=== PATIENT | male | born 1990 | race Caucasian/White ===

== ENCOUNTER 2025-04-22 14:26 | Emergency (ER) | payer BC, SELFPAY ==
--- OUTSIDE RECORDS SUMMARY | 2025-04-22 14:30 | XMS_ITS | Encounter Summary ---
Author Organization 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 [place] [address] Phone: tel: fax: [address] [place] [address] Phone: tel: fax: Referral ID Status Reason Start Date Expiration Date V isits Requested Visits Authorized [id number] Closed Specialty Services Required 03/25/2025 04/24/2026 1 1 Question Answer Please select the performing region: [facility] [[id number]] Please select the performing department: [facility] [[id number]] # of visits: 1 Comments Small fat umbilical hernia noted causing pain Encounter Details Date Type Department Care Team (Late st Contact Info) Description 03/25/2025 Results Follow-Up [facility] [address] [address] Tamika Cunningham NP [address] [place] [address] CT Chest Abdomen Pelvis W Contrast, Lipid panel, Comprehensive metabolic panel, Additional followed-up results: 4 Social History Tobacco Use Types Packs/Day Years Used Date Smoking Tobacco: Former Cigarettes Q uit: 2009 Smokeless Tobacco: Former Chew Quit: 07/30/2020 Comments:does chew 1x/month Alcohol Use Standard Drinks/Week Comments Yes 0 (1 standard drink = 0.6 oz pur e alcohol) occasionally AUDIT-C Answer Date Recorded Q1: How often do you have a drink containing alc ohol? Monthly or less 11/03/2021 Average Number of Drinks Not on file 022 Frequency of Binge Drinking Not on file 01/2022 PHQ-2 Answer Date Recorded PHQ-2 Total Score (If total score is 3 or more points, staff should administer the PHQ-9) 0 03/25/2024 Personal Safety Answer Date Recorded Have you ever been in or are you currently in a harmful physical or emotional relationship or is someone making you feel afraid or unsafe? Denies 08/29/2023 Sex and Gender Information Value Date Recorded Sex Assigned at Not on file Legal Sex Male 8:51 PM [employer] Gender Identity Not on file Sexual Orientation Not on file documented as of this encounter Ordered Prescriptions Prescription Sig Dispense Quantity Refills Last Filled Start Date End Date testosterone 50 mg/5 gram (1 %)Indications:Hypog onadism in male Place 2 each on the skin daily 300 g 2 03/25/2025 06/23/2025 testosterone 50 mg/5 gram (1 %)Indications:Hypog onadism in male Place 2 each on the skin daily 300 g 2 03/25/2025 03/25/2025 documented in this encounter Miscellaneous Notes * Telephone Encounter - Dipti Zamarripa MA - 03/25/2025 9:13 AM CDT Pt aware * Telephone Encounter - Dipti Zamarripa MA - 03/25/2025 9:13 AM CDT ----- Message from Tamika Cunningham NP sent at 03/25/2025 7:36 AM CDT ----- Please let Mr. Laguna know his CT of the chest, abdomen, and pelvis showed a small umbilical herniaand diverticulosis. 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 Also I had sent him a message in January about the testosterone cream he uses is not something I can order because it comes from a compound pharmacy, and I cannot send to that location. I can either send in a another testosterone cream or we can do injections. Please let me know his thoughts. I will also place a referral to general surgery for the hernia. ----- Message ----- From: Interface, Radiology Results In Sent: 03/25/2025 7:29 AM CDT To: Tamika Cunningham NP * Addendum Note - Tamika Cunningham NP - 03/25/2025 9:08 AM CDTAddended by: TAMIKA CUNNINGHAM on: 03/25/2025 09:08 AM Modules accepted: Orders * Telephone Encounter - Dipti Zamarripa MA - 03/25/2025 9:02 AM CDT Pt agreeable to referral. Pt also states that he is okay with you prescribing a different cream as long as it works the same way. Pt uses [facility] in [place] * Telephone Encounter - Dipti Zamarripa MA - 03/25/2025 9:02 AM CDT ----- Message from Tamika Cunningham NP sent at 03/25/2025 7:36 AM CDT ----- Please let Mr. Laguna know his CT of the chest, abdomen, and pelvis showed a small umbilical herniaand diverticulosis. 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 Also I had sent him a message in January about the testosterone cream he uses is not something I can order because it comes from a compound pharmacy, and I cannot send to that location. I can either send in a another testosterone cream or we can do injections. Please let me know his thoughts. I will also place a referral to general surgery for the hernia. ----- Message ----- From: Interface, Radiology Results In Sent: 03/25/2025 7:29 AM CDT To: Tamika Cunningham NP documented in this encounter Plan of Treatment Upcoming Encounters Date Type Department Care Team (Latest Contact Info) Description 05/27/2025 8:00 AM CDT Hospital Encounter [facility] [address] [place] [address] Kofi Maxwell MD [address] [place] [address] DR ARORA [address] [place] [id number] 05/27/2025 8:00 AM CDT - 05/27/2025 10:20 AM CDT Surgery [facility] [address] [place] [address] Kofi Maxwell MD [address] [place] [address] DR ARORA [address] [place] [id number] XI REPAIR VENTRAL HERNIA - LAPAROSCPIC ROBOTIC ASSISTED Scheduled Procedures Name Priority Associated Diagnoses Date/Ti me XI REPAIR VENTRAL HERNIA - LAPAROSCPIC ROBOTIC ASSISTED Epigastric hernia Umbilical hernia without obstruction and without gangrene 05/27/2025 8:00 AM CDT Scheduled Referrals Name Type Priority Associated Diagnoses Orde r Schedule Ambulatory referral to General Surgery Outpatient Referral Routine Umbilical hernia without obstruction and without gangrene Expected: 05/25/2025 (Approximate), Expires: 03/25/2026 documented as of this encounter Visit Diagnoses Diagnosis Umbilical hernia without obstruction and without gangrene- Primary Hypogonadism in male Umbilical hernia without obstruction and without gangrene- Primary Epigastric hernia Other ventral hernia without mention of obstruction or gangrene Epigastric hernia Other ventral hernia without mention of obstruction or gangrene Umbilical hernia without obstruction and without gangrene documented in this encounter Discontinued Medications Medication Sig Discontinue Reason Start Date End Da te testosterone 50 mg/5 gram (1 %)Indications:Hypogonadis m in male Place 2 each on the skin daily 03/25/2025 03/25/2025 documented as of this encounter Care Teams [employer] Deliverer And Installer Relationship Specialty Start Date End Date Octavio Stout MD [address] [place] [address] PCP - General 06/17/15 Mikayla Bauer, PT Physical Therapist Physical Therapy 12/18/17 Pati Lin, PT Physical Therapist Physical Therapy 01/03/18 Conrado Deutsch MD Surgeon Cardiothoracic Surgery 09/28/21 Moises Quiros MD Consulting Physician Cardiology 09/28/21 documented as of this encounter
--- OUTSIDE RECORDS SUMMARY | 2025-04-22 14:30 | XMS_ITS | Clinical Summary ---
Author Organization [facility] Address [address] [place] [address] Care Team Providers Care [employer] Name Role Phone Octavio Stout MD Primary Care Provider [phone] Mikayla Bauer PT Unavailable Unavailab Pati Simon PT Unavailable Unavailable Conrado Deutsch MD Unavailable [phone] Moises Quiros MD Unavailable Allergies Active Allergy Reactions Criticality Noted Date Comments Atorvastatin Muscle pain Medium 02/23/2023 Hydromorphone Itching,Anaphylaxis High 09/30/2021 had post surgery and starting itching and throat started get tight Lisinopril Cough Low 08/15/2019 Medications aspirin 81 mg enteric coated tabletIndicatio ns:cardiovascul ar disease Take 1 tablet (81 mg total) by mouth daily 30 tablet 11 03/30/20 21 Active multivit with min-folic acid 200 mcg tablet,chewable Take 1 Gum by mouth daily Active elderberry fruit 350 mg capsule Take 1 capsule by mouth daily Active nitroglycerin (NITROSTAT) 0.[address] 1 tablet (0.4 mg total) under the tongue every 5 (five) minutes as needed for chest pain 25 tablet 11 10/18/19 24 Active testosterone micronized, bulk, 100 % powder 0 12/15/19 24 Active cyclobenzaprine (FLEXERIL) 5 mg tabletIndicatio ns:Acute left-sided thoracic back pain Take 1 tablet (5 mg total) by mouth 3 (three) times a day as needed for muscle spasms for up to 3 days 9 tablet 01/03/20 24 Active Additional Information Patient not taking.Reported on 03/31/2025 clopidogreL (PLAVIX) 75 mg tablet Take 1 tablet (75 mg total) by mouth daily 90 tablet 3 10/30/19 25 026 Active isosorbide mononitrate ER (IMDUR) 30 mg 24 hr tablet TAKE 1 TABLET BY MOUTH ONCE DAILY 30 tablet 12/16/19 25 Active metoprolol XL (TOPROL-XL) 50 mg extended release tablet TAKE 1 TABLET BY MOUTH ONCE DAILY 30 tablet 12/16/19 25 Active ALPRAZolam (XANAX) 0.25 mg tablet Take 1 tablet (0.25 mg total) by mouth 2 (two) times a day as needed for anxiety 60 tablet 5 02/06/20 25 Active gabapentin (NEURONTIN) 800 mg tablet Take 1 tablet (800 mg total) by mouth 2 (two) times a day Take a third dose as needed. 02/10/20 25 Active inclisiran (Leqvio) 284 mg/1.5 mL syringe Inject 1.5 mL (284 mg total) under the skin every 6 (six) months Active testosterone 50 mg/5 gram (1 %)Indications:H ypogonadism in male Place 2 each on the skin daily 300 g 2 03/25/20 25 025 Active Additional Information Patient taking differently:2 each transdermal Daily,Using the cream per pt, Reported on 03/31/[address] (PROTONIX) 40 mg EC tablet Take 1 tablet (40 mg total) by mouth daily 90 tablet 04/21/20 25 025 Active hydrOXYzine (ATARAX) 25 mg tabletIndicatio ns:Anxiety TAKE 1 TABLET(25 MG) BY MOUTH THREE TIMES DAILY 90 tablet 07/28/20 [address] (PROTONIX) 40 mg EC tablet TAKE ONE TABLET BY MOUTH ONCE DAILY 90 tablet 3 01/29/20 24 025 Discontinued testosterone 50 mg/5 gram (1 %)Indications:H ypogonadism in male Place 2 each on the skin daily 300 g 2 03/25/20 25 025 Discontinued Active Problems Problem Noted Date Diagnosed Date Umbilical hernia without obstruction and without gangrene 04/13/2025 Epigastric hernia 03/31/2025 Assessment & Plan (03/31/2025 9:14 AM CDT): We will set the patient up for repair of the epigastric hernia. Given the umbilical discomfort as well we will also evaluate that area at the time of surgery. 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 We have discussed the need for mesh implantation. We have discussed doing this via a minimally invasive approach. All questions answered. He would like to wait closer till [place] time for the holidays to be able to take off. He will call sooner if anything changes before then. Hypogonadism in male 02/12/2025 Assessment & Plan (02/12/2025 9:28 AM CDT): Recent lab work from [facility] was uploaded into media to show recent lab work testosterone was noted to be 24.10 for free and 1,095 for total with the use of testosterone 200/ML cream from [facility]. Testosterone labs ordered today as well. Orders: Testosterone, bioavailable; Future Sleep disturbance 03/25/2024 Assessment & Plan (05/19/2024 12:42 PM CDT): Sleep study did not reveal significant sleep apnea. He is going to see sleep medicine specialist tomorrow. Appreciate their expertise. Assessment & Plan (03/25/2024 8:25 AM CDT): Sleep study ordered. Discussed the importance of treating sleep apnea if revealed on sleep study. He is agreeable and states understanding. Persistent depressive disorder 07/09/2022 Assessment & Plan (08/14/2024 8:21 AM LITIGATION CLAIM REPRESENTATIVE): Chronic, stable. No medications. Denies any symptoms at this time. Denies any active suicidal ideation. Continue to monitor at interval. Assessment & Plan (02/24/2024 8:25 PM CDT): Chronic, persistent symptoms including several of the following: depressed mood for most of the day, for more days than not, as indicated by either subjective account or observation by others for at least 2 years, and at least the presence, while depressed, of 2 or more of the following: poor appetite or overeating, insomnia or hypersomnia, low energy or fatigue, low self-esteem, poor concentration or difficulty making decisions, feelings of hopelessness. It is additionally noted that the patient has never been without the symptoms for more than 2 months at a time. Additionally, it is noted that there has never been a manic episode or a hypomanic episode, and criteria have never been met for cyclothymic disorder. The disturbance is not better explained by a persistent schizoaffective disorder, schizophrenia, delusional disorder, or other specified or unspecified schizophrenia spectrum and other psychotic disorder. The symptoms are not attributable to the physiological effects of a substance (e.g., a drug of abuse, a medication) or another medical condition (e.g., hypothyroidism). The patient does report that the symptoms cause clinically significant distress or impairment in social, occupational, or other important areas of functioning. The patient denies current suicidal ideation. The patient denies current homicidal ideation. The patient does not endorse any symptoms of psychosis, yolanda, or hypomania. I discussed the importance of lifestyle modification with the patient today. The patient will focus on lifestyle modification including: changes to diet, incorporate regularly scheduled exercise, obtain sufficient sleep/maintain proper sleep hygiene, and focus on reducing (or managing) stress levels with healthy techniques. Does not feel he needs any medication at this time. Feels symptoms are manageable without medication. Continue to monitor. Assessment & Plan (02/10/2023 7:38 AM CDT): Chronic, persistent symptoms including several of the following: depressed mood for most of the day, for more days than not, as indicated by either subjective account or observation by others for at least 2 years, and at least the presence, while depressed, of 2 or more of the following: poor appetite or overeating, insomnia or hypersomnia, low energy or fatigue, low self-esteem, poor concentration or difficulty making decisions, feelings of hopelessness. It is additionally noted that the patient has never been without the symptoms for more than 2 months at a time. Additionally, it is noted that there has never been a manic episode or a hypomanic episode, and criteria have never been met for cyclothymic disorder. The disturbance is not better explained by a persistent schizoaffective disorder, schizophrenia, delusional disorder, or other specified or unspecified schizophrenia spectrum and other psychotic disorder. The symptoms are not attributable to the physiological effects of a substance (e.g., a drug of abuse, a medication) or another medical condition (e.g., hypothyroidism). The patient does report that the symptoms cause clinically significant distress or impairment in social, occupational, or other important areas of functioning. The patient denies current suicidal ideation. The patient denies current homicidal ideation. The patient does not endorse any symptoms of psychosis, yolanda, or hypomania. I discussed the importance of lifestyle modification with the patient today. The patient will focus on lifestyle modification including: changes to diet, incorporate regularly scheduled exercise, obtain sufficient sleep/maintain proper sleep hygiene, and focus on reducing (or managing) stress levels with healthy techniques. Does not feel he needs any medication at this time. Feels symptoms are manageable without medication. Continue to monitor. Assessment & Plan (07/09/2022 7:22 PM LITIGATION CLAIM REPRESENTATIVE): Chronic, persistent symptoms including several of the following: depressed mood for most of the day, for more days than not, as indicated by either subjective account or observation by others for at least 2 years, and at least the presence, while depressed, of 2 or more of the following: poor appetite or overeating, insomnia or hypersomnia, low energy or fatigue, low self-esteem, poor concentration or difficulty making decisions, feelings of hopelessness. It is additionally noted that the patient has never been without the symptoms for more than 2 months at a time. Additionally, it is noted that there has never been a manic episode or a hypomanic episode, and criteria have never been met for cyclothymic disorder. The disturbance is not better explained by a persistent schizoaffective disorder, schizophrenia, delusional disorder, or other specified or unspecified schizophrenia spectrum and other psychotic disorder. The symptoms are not attributable to the physiological effects of a substance (e.g., a drug of abuse, a medication) or another medical condition (e.g., hypothyroidism). The patient does report that the symptoms cause clinically significant distress or impairment in social, occupational, or other important areas of functioning. The patient denies current suicidal ideation. The patient denies current homicidal ideation. The patient does not endorse any symptoms of psychosis, yolanda, or hypomania. I discussed the importance of lifestyle modification with the patient today. The patient will focus on lifestyle modification including: changes to diet, incorporate regularly scheduled exercise, obtain sufficient sleep/maintain proper sleep hygiene, and focus on reducing (or managing) stress levels with healthy techniques. Does not feel he needs any medication at this time. Feels symptoms are manageable without medication. Continue to monitor. Assessment & Plan (07/09/2022 7:19 PM LITIGATION CLAIM REPRESENTATIVE): Chronic condition, persistent symptoms, but functioning at or close to baseline at this time. Does not report need for any medications at this time. Still has some depressive symptoms, but feels he is able to manage without medication. The patient does not endorse any active suicidal ideation. Medication changes today: None Ongoing management to be provided as discussed and at interval as planned. Encounter for psychiatric assessment 07/09/2022 Assessment & Plan (07/09/2022 7:23 PM LITIGATION CLAIM REPRESENTATIVE): Psychiatric assessment was completed during the appointment today. All the paperwork completed by the patient was reviewed by me with the patient. All of the questions posed to me by the patient were answered. A treatment plan was developed in line with the information presented to me. Refer to specific problems for additional information regarding assessment and treatment recommendations. Hx of CABG 10/14/2021 Chest pain on breathing 09/16/2021 Palpitations 04/19/2021 Assessment & Plan (04/26/2021 3:20 PM CDT): Check Holter Assessment & Plan (04/19/2021 3:35 PM CDT): Start Toprol XL 50 mg daily SOB (shortness of breath) 04/19/2021 Assessment & Plan (06/09/2021 5:55 PM LITIGATION CLAIM REPRESENTATIVE): Patient reports no recent changes in SOB. Patient to discuss switching from brilinta to plavix with cardiology next week. No associated symptoms or palpitations. Assessment & Plan (04/26/2021 3:20 PM CDT): Check Echo Assessment & Plan (04/19/2021 3:35 PM CDT): Probably due to Brilinta. Consider transitioning to plavix Mixed hyperlipidemia 03/25/2021 Assessment & Plan (02/12/2025 9:28 AM CDT): Will get updated lab work. Will continue to monitor. Will continue on Leqvio and following with Cardiology. Orders: Lipid panel; Future Assessment & Plan (07/01/2024 4:18 PM LITIGATION CLAIM REPRESENTATIVE): To start Leqvio. Assessment & Plan (05/19/2024 12:42 PM CDT): Elevation of LDL. Had been off of Repatha for at least a month. He is restarting today. Reviewed the importance of compliance with the medication. He states understanding. Will continue following with Cardiology. Appreciate their expertise. Assessment & Plan (02/24/2024 8:26 PM CDT): Referral to the [facility] registered dietitian for dietary modification. Orders Placed This Encounter Procedures Ambulatory referral to [facility] Referred for CAD and potential disease reversal with plant-based diet. Standing Status: Future Standing Expiration Date: 02/10/2025 Referral Priority: Routine Referral Type: Consultation Referral Reason: Specialty Services Required Referral Location: [facility] (All Locations) Number of Visits Requested: 1 Focus on lifestyle modification including changes to diet, incorporate regularly scheduled exercise, obtain sufficient sleep/maintaining proper sleep hygiene, and reduce overall level of stress. Monitor at interval. Assessment & Plan (12/21/2023 3:06 PM CDT): Continue Repatha. Assessment & Plan (08/24/2023 3:44 PM LITIGATION CLAIM REPRESENTATIVE): The patient has been on Repatha. We need a follow-up lipid panel. Assessment & Plan (02/23/2023 3:44 PM CDT): The patient had muscle pain and weakness in his resolved with stopping the atorvastatin. Will repeat his lipid panel. Will probably need a PCSK9 inhibitor. Assessment & Plan (01/20/2022 10:00 PM CDT): Continue atorvastatin. Assessment & Plan (10/14/2021 3:44 PM CDT): Continue atorvastatin. Assessment & Plan (06/14/2021 4:01 PM LITIGATION CLAIM REPRESENTATIVE): Improved on atorvastatin. Assessment & Plan (06/09/2021 5:52 PM LITIGATION CLAIM REPRESENTATIVE): Continues high dose statin. LDL <70. Working to reduce carbs and simple sugars. Assessment & Plan (03/25/2021 11:08 AM CDT): Continue atorvastatin Primary hypertension 02/17/2021 Assessment & Plan (02/12/2025 9:28 AM CDT): Stable and well controlled. Will continue on Metoprolol, Imdur, and Plavix. Will continue to monitor. Will continue to follow with Cardiology. Orders: CBC with auto differential; Future Comprehensive metabolic panel; Future Assessment & Plan (07/01/2024 4:19 PM LITIGATION CLAIM REPRESENTATIVE): Normotensive with Imdur and metoprolol Assessment & Plan (05/19/2024 12:42 PM CDT): Normotensive. Continue Imdur, metoprolol. Will continue to monitor. Assessment & Plan (03/25/2024 8:25 AM CDT): Well controlled on metoprolol. No changes. Will continue to monitor. Assessment & Plan (12/21/2023 3:07 PM CDT): Controlled with Imdur and metoprolol. No changes recommended. Assessment & Plan (02/23/2023 3:44 PM CDT): Continue metoprolol. Assessment & Plan (06/09/2021 5:52 PM LITIGATION CLAIM REPRESENTATIVE): BP well controlled today. Assessment & Plan (04/19/2021 3:35 PM CDT): Monitor response to addition of metoprolol. Assessment & Plan (03/25/2021 11:08 AM CDT): Continue losartan Assessment & Plan (02/17/2021 5:26 PM CDT): Doing well on current regimen. Continue effort to improve diet-increase fruits/vegetables. Watch sodium intake <2000mg daily Labs ordered; will notify of results. Chest pain 02/17/2021 Assessment & Plan (08/24/2023 3:45 PM LITIGATION CLAIM REPRESENTATIVE): The patient is chest pain is similar to his pre-CABG symptoms. In spite of his negative stress test recommend coronary angiography. Assessment & Plan (03/25/2021 11:09 AM CDT): The patient has multiple risk factors for coronary disease including ago remarkable family history. His chest pain has the typical features it is exertional and relieved by nitroglycerin. Stress echocardiogram 3 weeks ago Was negative but his symptoms persist. I have recommended diagnostic coronary angiography with further recommendations pending that result. In the meantime I will start him on isosorbide mononitrate 30 mg daily. The be given nitroglycerines 0.4 mg sublingual p.r.n.. Assessment & Plan (02/17/2021 5:25 PM CDT): EKG NSR in office today. VS stable. No active chest pain at this time. Stress echo ordered. Extensively reviewed ER precautions with patient. Encounter for screening for lipid disorder 02/17 Assessment & Plan (02/17/2021 5:29 PM CDT): Reviewed previous labs.08/20/19 TC 245 HDL 44 LDL 138 TRG 314 Discussed need to make dietary changes, avoid [id number] foods and red meats. Patient with sig family hx of CAD. Will check labs today, patient agreeable to medication as needed for increased lipids. GERD without esophagitis 08/31/2020 Overview (08/31/2020): Added automatically from request for surgery [id number] Assessment & Plan (02/17/2021 5:31 PM CDT): Doing well on omeprazole, medication refilled today. Will continue to monitor. Refused influenza vaccine 09/04/2018 Anxiety 09/04/2018 Assessment & Plan (08/14/2024 8:20 AM LITIGATION CLAIM REPRESENTATIVE): Chronic condition with persistent, but stable symptoms. Medication changes today: None Insight-oriented, supportive counseling provided. Continued management as discussed Assessment & Plan (03/25/2024 8:24 AM CDT): Stable. Following closely with Psychiatry and will continue to do so. Assessment & Plan (02/24/2024 8:22 PM CDT): Chronic condition with persistent symptoms. Medication changes today: None Insight-oriented, supportive counseling provided. Continued management as discussed Assessment & Plan (02/10/2023 7:38 AM CDT): Chronic condition with persistent symptoms. Medication changes today: None Insight-oriented, supportive counseling provided. Continued management as discussed Assessment & Plan (07/09/2022 7:23 PM LITIGATION CLAIM REPRESENTATIVE): Chronic condition with persistent symptoms. Medication changes today: None Insight-oriented, supportive counseling provided. Continued management as discussed Assessment & Plan (07/09/2022 7:19 PM LITIGATION CLAIM REPRESENTATIVE): Chronic condition with episodic, but currently stable symptoms. Medication changes today: None Insight-oriented, supportive counseling provided. Continued management as discussed Assessment & Plan (06/09/2021 5:53 PM LITIGATION CLAIM REPRESENTATIVE): Doing well with buspirone BID. Taking hydroxyzine prn at HS. Assessment & Plan (02/17/2021 5:31 PM CDT): Patient reports improvement with buspirone BID. Declines maintenance medication. Will add prn hydroxyzine at HS Obsessive-compulsive disorder 03/30/2016 Overview (11/03/2016): OCD (obsessive compulsive disorder) Assessment & Plan (02/24/2024 8:22 PM CDT): Referral diagnosis. Assessment & Plan (02/10/2023 7:38 AM CDT): Referral diagnosis. Assessment & Plan (07/09/2022 7:23 PM LITIGATION CLAIM REPRESENTATIVE): Referral diagnosis. Zaina-Schlatter's disease 12/04/2014 Overview (11/03/2016): Zaina-Schlatter Atherosclerosis of [place] co ronary artery of [place] heart with angina pectoris Assessment & Plan (07/01/2024 4:18 PM LITIGATION CLAIM REPRESENTATIVE): Asymptomatic,. Continue ASA/Plavix. Assessment & Plan (12/21/2023 3:06 PM CDT): Angina is well controlled with current medications. I recommend no changes Assessment & Plan (09/04/2023 4:46 PM LITIGATION CLAIM REPRESENTATIVE): Discussed medical therapy versus treatment of a LAST PUTTER AWAY for a small posterior circumflex which has collateral blood flow. I have recommended increasing his metoprolol to 50 mg daily and adding Imdur 30 mg daily. We will monitor his response to therapy. Assessment & Plan (08/24/2023 3:44 PM LITIGATION CLAIM REPRESENTATIVE): The patient has persistent symptoms in spite of negative stress test. I recommend coronary angiography to ensure that he is adequately revascularized. Assessment & Plan (02/23/2023 3:44 PM CDT): Stable status post coronary bypass grafting. Continue aspirin and clopidogrel. Assessment & Plan (08/04/2022 3:04 PM LITIGATION CLAIM REPRESENTATIVE): Stable., no change Assessment & Plan (01/20/2022 10:00 PM CDT): Doing well, back to work. ECG stable. No changes recommended Assessment & Plan (10/14/2021 3:44 PM CDT): The patient is doing okay now 3 weeks status post coronary bypass grafting. Referred to cardiac rehab. Assessment & Plan (09/06/2021 3:35 PM LITIGATION CLAIM REPRESENTATIVE): Though the patient's chest pain is improved he now is having episodes at rest. I recommend repeat coronary angiogram. Assessment & Plan (08/16/2021 5:19 PM LITIGATION CLAIM REPRESENTATIVE): The patient has exertional chest discomfort that was self-limiting. His cardiac catheterization in March showed small-vessel disease in the distal posterior circumflex distribution as well as a borderline LAD that was negative by iFR. I will add amlodipine 5 mg a day to the patient's medical regimen and see him back in 2-3 weeks. Assessment & Plan (06/14/2021 4:00 PM LITIGATION CLAIM REPRESENTATIVE): No angina on current meds. Assessment & Plan (06/09/2021 5:51 PM LITIGATION CLAIM REPRESENTATIVE): Continues DAPT and statin. Working on diet. Denies any ongoing cp. Following closely with cardiology. Assessment & Plan (05/06/2021 3:17 PM CDT): The patient has borderline mid LAD disease and needs to be assessed with a Doppler flow wire. In addition the recently stented circumflex had disease distal to the stent that needs to be reassessed. Because the patient had a negative stress test in spite of a totally occluded distal circumflex I believe the only accurate assessment of these lesions can be performed by cardiac catheterization. Assessment & Plan (04/19/2021 3:36 PM CDT): Symptoms are atypical for angina and there are no new ECG changes. S/P angioplasty with stent Angina at rest Resolved Problems Problem Noted Date Diagnosed Date Resolved Date Class 1 obesity due to exces s calories with serious comorbidity and body mass index (BMI) of 31.0 to 31.9 in adult 06/09/2021 06/09/2021 Encounters Date Type Department Care Team Description 04/17/2025 8:35 AM CDT Lab [facility] [address] [place] [address] Hypogonadism in male; Mixed hyperlipidemia; Primary hypertension 03/31/2025 8:20 AM CDT Office Visit [facility] [address] [facility] [address] [place] [address] Kofi Maxwell MD Epigastric hernia (Primary Dx) 03/25/2025 Telephone [facility] [address] [phone] Octavio Stotu MD Authorization/Certifi cation 03/25/2025 Results Follow-Up [facility] [address] [phone] [address] Chest Abdomen Pelvis W Contrast, Lipid panel, Comprehensive metabolic panel, Additional followed-up results: 4 03/16/2025 2:39 PM CDT - 03/16/2025 11:59 PM CDT Hospital Encounter [facility] [address] [place] [id number] Epigastric mass Discharge Disposition: Discharge to home or self care 03/13/2025 Telephone [facility] [address] [place] [phone] Martin Ybarra 02/12/2025 8:30 AM CDT Office Visit [facility] [address] [phone] Vivian Cunningham NP Hypogonadism in male (Primary Dx); Epigastric mass; Mixed hyperlipidemia; Primary hypertension; Class 1 obesity without serious comorbidity with body mass index (BMI) of 30.0 to 30.9 in adult, unspecified obesity type 02/05/2025 11:[address] [facility] [address] [facility] [address] [place] [phone] Samuel Grant MD Anxiety (Primary Dx); Persistent depressive disorder; Obsessive-compulsive disorder, unspecified type 02/05/2025 Telephone [facility] [address] [phone] Octavio Stout MD Medical Question/Miscellaneou s 02/04/2025 Documentation [facility] Medicine Surgery [address] [place] [address] Luc Chaudhari NP 02/04/2025 Telephone [employer] [address] [place] [address] Eva Clifford MA 02/03/2025 Telephone [facility] [address] [address] Octavio Stout MD Symptom Based Call 02/03/2025 Telephone [facility] [address] [address] Octavio Stout MD Med Refill from Last 3 Months Immunizations Immunization Administration Dates Next Due Hep B, Adolescent or Pediatric 08/12/2001,1999 Hep B, Unspecified 05/10/2001 Influenza, Quadrivalent, Spl it, Preservative Free, Intramuscular 05/19/2021,05/24/2020,08/15/2019 Influenza, Unspecified 05/19/2024(Deferr ed: Patient Refused),03/25/2024(Deferred: Patient Refused),03/30/2023(Deferred: Patient Refused),04/29/2021(Deferred: Patient Refused),05/27/2020,08/15/2019(Deferre d: Patient Refused),09/04/2018(Deferred: Patient Refused),09/04/2018(Deferred: Patient Refused),07/30/2018(Deferred: Patient Refused),07/30/2017(Deferred: Patient Refused),07/30/2017(Deferred: Patient Refused),07/31/2016(Deferred: Patient Refused) Meningococcal MCV4P (Menactra) 06/12/2007 Td, adsorbed 03/21/2004,11/03/2003 Tdap 06/17/2015,06/12/2007 Surgical History Surgery Date Site/Laterality Comments TONSILLECTOMY Tonsillectomy CARDIAC STENT PLACEMENT HEART SURGERY 09/23/2021 Open Heart-CHNE CORONARY ARTERY BYPASS GRAFT 09/23/2021 Medical History Medical History Date Comments GERD (gastroesophageal reflux disease) Hypertension Zaina-Schlatter's disease Obsessive compulsive disorder Anxiety Hyperlipidemia Chest pain, unspecified 02/2021 CAD (coronary artery disease) SOB (shortness of breath) Neuropathy DDD (degenerative disc disease), lumbar CHF (congestive heart failure) (HCC) Heart disease Family History Medical History Relation Name Comments Heart disease Father Elder sandhu Cardiovascul ar disease; Heart failure Father Elder sandhu Diabetes Maternal Grandfather Sampson rudolph Heart disease Maternal Grandfather Sampson rudolph Arthritis Mother Nichole sandhu Diabetes Other maternal side Heart disease Other paternal side Melanoma Other Family history of Melanoma; Relation Name Status Comments Brother Myke Father Elder sandhu Alive Maternal Grandfather Sampson rudolph Mother Nichole sandhu Alive Other Sister Dulce Social History Tobacco Use Types Packs/Day Years Used Date Smoking Tobacco: Former Cigarettes Q uit: 2009 Smokeless Tobacco: Former Chew Quit: 07/30/2020 Tobacco Cessation:Counseling Given: Not Answered Comments:does chew 1x/month Alcohol Use Standard Drinks/Week [...] on file 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 Gender Identity Not on file Sexual Orientation Not on file Obstetrics History Last Filed Vital Signs Vital Sign Reading Time Taken Comments Blood Pressure 125/80 03/31/2025 8:14 AM CDT Pulse 70 03/31/2025 8:14 AM CDT Temperature 36 C (96.8 F) 03/31/2025 8:14 AM CDT Respiratory Rate 20 02/12/2025 8:36 AM CDT Oxygen Saturation 96% 03/31/2025 8:14 AM CDT Inhaled Oxygen Concentration - - Weight 101.7 kg (224 lb 3.2 oz) 03/31/2025 8:14 AM CDT Height 180.3 cm (5' 10.98) 03/31/2025 8:14 AM C DT Body Mass Index 31.29 03/31/2025 8:14 AM CDT Plan of Treatment Upcoming Encounters Date Type Department Care Team (Latest Contact Info) Description 05/27/2025 8:00 AM CDT Hospital Encounter [facility] Operating Room [address] [place] [address] Kofi Maxwell MD [address] [facility] [facility] [address] AR[address] [address] [place] [id number] 05/27/2025 8:00 AM CDT - 05/27/2025 10:20 AM CDT Surgery [facility] Operating Room [address] [place] [address] Kofi Maxwell MD [address] [facility] [address] ARORA [address] [place] [id number] XI REPAIR VENTRAL HERNIA - LAPAROSCPIC ROBOTIC ASSISTED Scheduled Procedures Name Priority Associated Diagnoses Date/Ti me XI REPAIR VENTRAL HERNIA - LAPAROSCPIC ROBOTIC ASSISTED Epigastric hernia Umbilical hernia without obstruction and without gangrene 05/27/2025 8:00 AM CDT Health Maintenance Due Date Last Done Comments Hepatitis C Screening 1989 Varicella Vaccines (1 of 2 - 13+ 2-dose series) 2002 Regular Well Visit/Exam 18-64 01/01/2008 HPV Vaccines (1 - 3-dose SCDM series) 2016 Depression Screening 03/25/2025 03/25/2024, 03/20/2022, 12/16/2021, Additional history exists Influenza Vaccine (#1) 2025 , 05/27/2020, 05/24/2020, Additional history exists DTaP/Tdap/Td Vaccine (3 - Td or Tdap) 06/17/2025 06/17/2015, 06/12/2007, 03/21/2004, Additional history exists Hepatitis B Screening Completed 08/12/2001 , 05/10/2001, 06/25/2000 Pneumococcal vaccine <65 Aged Out No longer eligible based on patient's age to complete this topic Medical Devices Implanted Type Area Vertical Contour Band Saw Operator Device Identifier Shelf Expiration Date Model / Serial / Lot [employer] Amanda Angio-Seal Vip 6fr Closere Device [id number] - [id number] Implanted:Qty: 1 on 08/29/2023 by Eduardo Rogers MD at [facility] Right: Common Femoral Artery [employer] Amanda [id number] / / [employer] [id number] Resolute Bear 2mm 18mm 140cm Rapid Exchange Delivery System - [id number] Implanted:Qty: 1 on 03/28/2021 by Moises Quiros MD at [facility] Stent Coronary Medtronic Inc 12/03/2021 [id number] / / [id number] Medtronic Usa [employer] X [id number] Resolute Bear 3mm 2.1-2.7fr 15mm 140cm Rapid Exchange Radiopaque - [id number] Implanted:Qty: 1 on 03/28/2021 by Moises Quiros MD at [facility] Stent Coronary [employer] Inc 10/16/2022 [id number] / / [id number] Daig Amanda [id number] Device Closure Angio-Seal Vip Bondek-Plus Polyglyd L70 Cm Od6 Fr Odsec.035 In Vascular - [id number] Implanted:Qty: 1 on 03/28/2021 by Moises Quiros MD at [facility] Right: Groin [employer] Amanda 11/26/2021 [id number] / / [id number] Daig Amanda [id number] Device Closure Angio-Seal Vip Bondek-Plus Polyglyd L70 Cm Od6 Fr Odsec.035 In Vascular - [id number] Implanted:Qty: 1 on 05/12/2021 by Moises Quiros MD at [facility] [employer] 12/27/2021 [id number] / / [id number] Angio-Seal Vip 6fr Closere Device - [id number] Implanted:Qty: 1 on 09/15/2021 by Moises Quiros MD at [facility] [employer] [facility] 06/28/2022 [id number] / / [id number] Procedures Procedure Name Priority Date/Time Associated Diagnosis Comments BLOOD MISC TO [place] Routine 04/17/2025 8: 46 AM CDT EGFR Routine 04/17/2025 8:32 AM CDT Primary hypertension DIFFERENTIAL AUTO Routine 04/17/2025 8:3 2 AM CDT Primary hypertension CBC WITH AUTO DIFFERENTIAL Routine 04/17/2025 8:32 AM CDT Primary hypertension COMPREHENSIVE METABOLIC PANEL Routine 04/17/2025 8:32 AM CDT Primary hypertension LIPID PANEL Routine 04/17/2025 8:32 AM CDT Mixed hyperlipidemia CT CHEST ABDOMEN PELVIS W CONTRAST Schedule Routine, Read Routine (OP Routine) 03/16/2025 3:22 PM CDT Epigastric mass from Last 3 Months Results * eGFR (04/17/2025 8:32 AM CDT) eGFR >90 >=60 mL/min/1. 73 m2 Comment: Interpretive Data Reference Interval Normal >/= 90 mL/min/1.73m2 Mildly decreased* 60 - 89 mL/min/1.73m2 Mildly to moderately decreased 45 - 59 mL/min/1.73m2 Moderately to severely decreased 30 - 44 mL/min/1.73m2 Severely decreased 15 - 29 mL/min/1.73m2 Kidney Failure < 15 mL/min/1.73m2 *Relative to young adult level Estimated glomerular filtration rate is determined by the 2020 CKD-EPI equation recommended by the National Kidney Foundation (A Unifying Approach to GFR Estimation: Recommendations of the NKF-ASK Task Force on Reassessing the Inclusion of Race in Diagnosing Kidney Disease, JASN 2020). The CKD-EPI equation should not be used for patients with unstable renal function and has not been validated in children and those over 70. Current interpretive data was last reviewed 2021. Testing performed by: [facility], [address] [place], [place] [address], [place]., [address] Blood 04/17/2025 8:32 AM CDT 04/17/2025 2:44 PM CDT Vivian Cunningham LABEL PRINTING MACHINIST LAB BLOOD ORDERABLES Final Re sult [facility] ([place]) 1 [facility] [place] [address] * Differential, auto (04/17/2025 8:32 AM CDT) Neutrophil abs 2.77 1.50 - 6.50 K/cumm Comment:Testing performed by : [facility], [address] [place] [address], [id number] Imm gran abs 0.03 0.00 - 0.10 K/cumm [facility] ([place]) Comment:Testing performed by : [address], [address] Lymphocyte abs 2.43 0.80 - 3.30 K/cumm [facility] ([place]) Comment:Testing performed by : [facility], [address] [place] [address], [address] Monocyte abs 0.47 0.20 - 0.80 K/cumm [facility] ([place]) Comment:Testing performed by : [facility], [address] [place] [address], [address] Eosinophil abs 0.09 0.00 - 0.50 K/cumm [facility] ([place]) Comment:Testing performed by : [address] [address] Basophil abs 0.04 0.00 - 0.10 K/cumm [facility] ([place]) Comment:Testing performed by : [address], [address] Neutrophil pct 47.5 % [facility] ([place]) Comment: Interpretive Data Percent cell count reference ranges are not reported, since discordance with absolute values may lead to misinterpretation of CBC data. Current Interpretive Data was last revised on 2017. Testing performed by: [address], [address] Imm gran pct 0.5 % [facility] ([place]) Comment: Interpretive Data Percent cell count reference ranges are not reported, since discordance with absolute values may lead to misinterpretation of CBC data. Current Interpretive Data was last revised on 2017. Testing performed by: [facility], [address] [place] [address]., [address] Lymphocyte pct 41.7 % [facility] ([facility]) Comment: Interpretive Data Percent cell count reference ranges are not reported, since discordance with absolute values may lead to misinterpretation of CBC data. Current Interpretive Data was last revised on 2017. Testing performed by: [facility], [address] [place] [address]., [address] Monocyte pct 8.1 % [facility] ([facility]) Comment: Interpretive Data Percent cell count reference ranges are not reported, since discordance with absolute values may lead to misinterpretation of CBC data. Current Interpretive Data was last revised on 2017. Testing performed by: [address], [address] Eosinophil pct 1.5 % [facility] ([facility]) Comment: Interpretive Data Percent cell count reference ranges are not reported, since discordance with absolute values may lead to misinterpretation of CBC data. Current Interpretive Data was last revised on 2017. Testing performed by: [address] [address] Basophil pct 0.7 % [facility] ([place]) Comment: Interpretive Data Percent cell count reference ranges are not reported, since discordance with absolute values may lead to misinterpretation of CBC data. Current Interpretive Data was last revised on 2017. Testing performed by: [address] [address] Blood 04/17/2025 8:32 AM CDT 04/17/2025 2:07 PM CDT us Vivian Cunningham NP LAB BLOOD ORDERABLES Final Re sult [facility] ([place]) 1 [facility] [place] [address] * (ABNORMAL) CBC with auto differential (04/17/2025 8:32 AM CDT) WBC 5.83 3.80 - 9.90 K/cumm Comment:Testing performed by : [address], [address] Hgb 18.6(H) 13.0 - 17.5 g/dL [facility] ([facility]) Comment:Testing performed by : [address], [address] Hct 56.5(H) 38.9 - 50.3 % [facility] ([facility]) Comment:Testing performed by : [address], [address] Plt 262 150 - 400 K/cumm [facility] ([facility]) Comment:Testing performed by : [address], [address] MPV 10.4 9.1 - 12.3 fL [facility] ([facility]) Comment:Testing performed by : [address], [address] RBC 6.10(H) 4.30 - 5.80 M/cumm [facility] ([facility]) Comment:Testing performed by : [address], [address] MCV 92.6 81.3 - 96.4 fL [facility] ([facility]) Comment:Testing performed by : [address], [address] MCH 30.5 27.1 - 33.3 pg [facility] ([place]) Comment:Testing performed by : [address], [address] MCHC 32.9 32.3 - 35.7 g/dL [facility] ([facility]) Comment:Testing performed by : [address], [address] RDW CV 12.2 11.1 - 14.9 % [facility] ([facility]) Comment:Testing performed by : [address], [address] RDW SD 42.2 35.7 - 48.1 fL [facility] ([facility]) Comment:Testing performed by : [address], [place]., [address] NRBC abs 0.00 0.00 - 0.01 K/cumm [facility] ([place]) Comment:Testing performed by : [address] [address] Blood 04/17/2025 8:3 2 AM CDT 04/17/2025 2:07 PM CDT Vivian Cunningham LABEL PRINTING MACHINIST LAB BLOOD ORDERABLES Final Re sult [facility] ([place]) 1 [facility] [place] [address] * (ABNORMAL) Lipid panel (04/17/2025 8:32 AM CDT) Cholesterol 162 30 - 199 mg/dL Comment: Interpretive Data Ages < or = 19 years Acceptable: <170 mg/dL Borderline high: 170-199 mg/dL High: >or= 200 mg/dL Ages > or = 20 years Desirable: <200 mg/dL Borderline high: 200-239 mg/dL High: >or= 240 mg/dL Literature References: 1. Expert Panel on Integrated Guidelines for Cardiovascular Health and Risk Reduction in Children and Adolescents. Pediatrics 2011;128:S213 2. NCEP Expert Panel. Circulation 2004;110:227 Current Interpretive Data was last revised on 2018. Testing performed by: [facility], [address] [place] [address]., [address] Triglycerides 160(H) <=149 mg/dL [facility] ([place]) Comment: Interpretive Data Ages < or = 9 years Acceptable: <75 mg/dL Borderline high: 75-99 mg/dL High: >or= 100 mg/dL Ages 10 to 20 years Acceptable: <90 mg/dL Borderline high: 90-129 mg/dL High: >or= 130 mg/dL Ages > or = 20 years Desirable: <150 mg/dL Borderline high: 150-199 mg/dL High: 200-499 mg/dL Very high: >or= 499 mg/dL Literature References: 1. Expert Panel on Integrated Guidelines for Cardiovascular Health and Risk Reduction in Children and Adolescents. Pediatrics 2011;128:S213 2. NCEP Expert Panel. Circulation 2004;110:227 Current Interpretive Data was last revised on 2018. Testing performed by: [facility], [address] [place] [address]., [address] HDL 43 >=40 mg/dL [facility] ([place]) Comment: Interpretive Data Ages < or = 19 years Acceptable: >45 mg/dL Borderline low: 40-45 mg/dL Low: <40 mg/dL Ages > or = 20 years Desirable: >or= 60 mg/dL Low: <40 mg/dL Literature References: 1. Expert Panel on Integrated Guidelines for Cardiovascular Health and Risk Reduction in Children and Adolescents. Pediatrics 2011;128:S213 2. NCEP Expert Panel. Circulation 2004;110:227 Current Interpretive Data was last revised on 2018. Testing performed by: [facility], [address] [place] [address]., [address] LDL, calculated 91 <=129 mg/dL [facility] ([place]) Comment: Interpretive Data Ages < or = 19 years Acceptable: <110 mg/dL Borderline high: 110-129 mg/dL High: >or= 130 mg/dL Ages > or = 20 years Optimal: <100 mg/dL Near optimal: 100-129 mg/dL Borderline high: 130-159 mg/dL High: >160 mg/dL Calculated using the Usama LDL-C estimating equation. This equation was implemented on 2024. Prior to this date LDL-C was estimated using the Friedewald equation. Literature References: 1. Expert Panel on Integrated Guidelines for Cardiovascular Health and Risk Reduction in Children and Adolescents. Pediatrics 2011;128:S213 2. NCEP Expert Panel. Circulation 2004;110:227 3. Usama Alexander et al. YUN Cardiol. 2020 November 27;5(5):540-548. doi: 10.1001/jamacardio.2020.0013 Current Interpretive Data was last revised on 2024. Testing performed by: [facility], [address] [place] [address]., [address] Non-HDL Cholesterol 119 mg/dL [facility] ([place]) Comment: Interpretive Data Ages < or = 19 years Acceptable: <120 mg/dL Borderline high: 120-144 mg/dL High: >145 mg/dL Ages > or = 20 years When triglycerides are >200 mg/dL, Non-HDL cholesterol is a secondary target of therapy with treatment goals that are 30 mg/dL greater than the LDL cholesterol target. Literature References: 1. Expert Panel on Integrated Guidelines for Cardiovascular Health and Risk Reduction in Children and Adolescents. Pediatrics 2011;128:S213 2. NCEP Expert Panel. Circulation 2004;110:227 Current Interpretive Data was last revised on 2018. Testing performed by: [facility], [address] [place] [address]., [address] Chol/HDL ratio 4 [facility] ([place]) Comment:Testing performed by : [address], [address] Blood 04/17/2025 8:32 AM CDT 04/17/2025 2:07 PM CDT Vivian Cunningham LABEL PRINTING MACHINIST LAB BLOOD ORDERABLES Final Re sult [facility] ([place]) 1 [facility] [place] [address] * Comprehensive metabolic panel (04/17/2025 8:32 AM CDT) Sodium 139 135 - 145 mmol/L Comment:Testing performed by : [address] [address] Potassium, pl 4.5 3.3 - 4.9 mmol/L [facility] ([place]) Comment:Testing performed by : [address] [address] Chloride 101 97 - 110 mmol/L [facility] ([facility]) Comment:Testing performed by : [address] [address] CO2 26 22 - 32 mmol/L [facility] ([facility]) Comment:Testing performed by : [address], [address] Anion gap 12 2 - 15 mmol/L [facility] ([place]) Comment:Testing performed by : [address], [address] BUN 19 6 - 25 mg/dL [facility] ([facility]) Comment:Testing performed by : [address] [address] Creatinine 1.04 0.80 - 1.30 mg/dL [facility] ([facility]) Comment:Testing performed by : [address] [address] Glucose 97 70 - 199 mg/dL [facility] ([place]) Comment: Interpretive Data Fasting glucose >/= 126 mg/dl is diagnostic for diabetes. Fasting is defined as no caloric intake for at least 8 hours. Fasting glucose between 100 mg/dl to 125 mg/dl is diagnostic of prediabetes. In a patient with classic symptoms of hyperglycemia or hyperglycemic crisis, a random glucose >/= 200 mg/dl is diagnostic for diabetes. In the absence of unequivocal hyperglycemia, results should be confirmed by repeat testing. The classification and Diagnosis of Diabetes Diabetes Care 2021; 46: S19-S40. Current interpretive data was last revised 2022. Testing performed by: [address], [address] Calcium 9.6 8.5 - 10.3 mg/dL [facility] ([place]) Comment:Testing performed by : [address] [address] Bilirubin, total 0.6 0.1 - 1.2 mg/dL [facility] ([place]) Comment:Testing performed by : [address] [address] Protein, pl 7.1 6.5 - 8.5 g/dL [facility] ([place]) Comment:Testing performed by : [address], [address] Albumin 4.5 3.5 - 5.0 g/dL [facility] ([facility]) Comment:Testing performed by : [address], [address] Alk phos 85 40 - 130 Units/L [facility] ([facility]) Comment:Testing performed by : [address], [address] ALT 17 7 - 55 Units/L [facility] ([facility]) Comment:Testing performed by : [address], [address] AST 31 10 - 50 Units/L [facility] ([place]) Comment:Testing performed by : [facility], [id number] [place] [address], [place]., [address] Blood 04/17/2025 8:32 AM CDT 04/17/2025 2:07 PM CDT us Vivian Cunningham NP LAB BLOOD ORDERABLES Final Re sult [facility] ([place]) 1 [facility] [place] [address] * CT Chest Abdomen Pelvis W Contrast (03/16/2025 3:22 PM CDT) Anatomical Region Laterality Modality Body N/A Computed Tomogra phy 03/25/2025 7:15 AM CDT Narrative 03/25/2025 7:27 AM CDT EXAM DESCRIPTION: CT CHEST ABDOMEN PELVIS W CONTRAST REASON FOR STUDY: hernia suspected Mass in epigastric area, umbillical pain x 6 months. Hx of triple bypass surgery. TECHNIQUE: CT scan of the chest, abdomen, and pelvis performed with intravenous and without oral contrast using helical scanning technique with dynamic intravenous contrast injection. Reconstructed coronal and sagittal MPR images reviewed. All images stored on PACS. Automated exposure control was used as a dose optimization technique for this examination. CONTRAST TYPE/DOSE: 75mL of IOVERSOL 350 MG IODINE/ML INTRAVENOUS SYRINGE injected via intravenous COMPARISON: None FINDINGS: CHEST LUNGS: No pneumonic consolidation. Mild subsegmental scarring and atelectasis. No suspicious pulmonary nodule. The central airways are patent. PLEURA: No effusion. No pneumothorax. MEDIASTINUM/BOYD: The visualized thyroid gland is unremarkable. There are scattered subcentimeter short axis mediastinal and hilar nodes. There are surgical clips within the anterior mediastinum. The esophagus is unremarkable. HEART: The heart is normal in size, without a pericardial effusion. VASCULATURE CHEST: Thoracic aorta is normal in caliber. Main pulmonary trunk normal in caliber. AXILLA: No axillary lymphadenopathy. CHEST WALL: Sternotomy changes are present. HARDWARE/LINES/TUBES: None. MUSCULOSKELETAL CHEST: There is no acute osseous abnormality. ABDOMEN/PELVIS LIVER: The liver is within normal limits in size. There is a tyrese metric hypodensity at the dome of the liver on image number 72, too small to characterize. No suspicious mass. GALLBLADDER: No stones identified. No wall thickening or inflammatory changes. BILE DUCTS: No intrahepatic or extrahepatic ductal dilatation. SPLEEN: Normal size. No focal lesions. PANCREAS: No peripancreatic inflammatory process or fluid collection. No appreciable mass or ductal dilatation. ADRENALS: Unremarkable. KIDNEYS/URINARY TRACT: There is contrast material within the collecting systems limiting assessment for stones. There is no hydronephrosis. No suspicious cystic or solid mass in either kidney. No hydronephrosis or hydroureter. The urinary bladder is decompressed, which accentuates wall thickness. GI: The stomach is unremarkable. Small bowel loops are normal in caliber. No wall thickening or obstruction. The appendix is normal. There is diverticulosis, without diverticulitis. Intermittent decompression of the sigmoid colon and rectum limits evaluation. PERITONEUM: There is no free intraperitoneal air. There is no free fluid. No mesenteric lymphadenopathy. RETROPERITONEUM: No retroperitoneal mass or adenopathy. REPRODUCTIVE: The prostate gland is unremarkable. VASCULATURE ABDOMEN: No abdominal aortic aneurysm. MUSCULOSKELETAL ABDOMEN PELVIS: There is degenerative disc disease greatest at L5-S1. No acute osseous abnormality. Mild osteoarthritis of the SI joints. OTHER: Small fat containing umbilical hernia. IMPRESSION: 1. No focal inflammatory process within the chest, abdomen or pelvis. 2. No lymphadenopathy. 3. Small fat containing umbilical hernia. 4. Diverticulosis. 5. Additional findings as above. THIS IS AN ELECTRONICALLY VERIFIED FINAL REPORT 03/25/2025 7:27 AM - Electronically signed by Oliva Turner M.D. TW: MARTHA Report ID: [id number] Reading Location: [id number] Procedure Note Oliva Turner MD - 03/25/2025 EXAM DESCRIPTION: CT CHEST ABDOMEN PELVIS W CONTRAST REASON FOR STUDY: hernia suspected Mass in epigastric area, umbillical pain x 6 months. Hx of triple bypass surgery. TECHNIQUE: CT scan of the chest, abdomen, and pelvis performed with intravenous and without oral contrast using helical scanning techniquewith dynamic intravenous contrast injection. Reconstructed coronal and sagittalMPR images reviewed. All images stored on PACS. Automated exposure control was used as a dose optimization technique for this examination. CONTRAST TYPE/DOSE: 75mL of IOVERSOL 350 MG IODINE/ML INTRAVENOUS SYRINGE injected via intravenous COMPARISON: None FINDINGS: CHEST LUNGS: No pneumonic consolidation. Mild subsegmental scarring and atelectasis. No suspicious pulmonary nodule. The central airways arepatent. PLEURA: No effusion. No pneumothorax. MEDIASTINUM/BOYD: The visualized thyroid gland is unremarkable. Thereare scattered subcentimeter short axis mediastinal and hilar nodes. There are surgical clips within the anterior mediastinum. The esophagus is unremarkable. HEART: The heart is normal in size, without a pericardial effusion. VASCULATURE CHEST: Thoracic aorta is normal in caliber. Main pulmonary trunk normal in caliber. AXILLA: No axillary lymphadenopathy. CHEST WALL: Sternotomy changes are present. HARDWARE/LINES/TUBES: None. MUSCULOSKELETAL CHEST: There is no acute osseous abnormality. ABDOMEN/PELVIS LIVER: The liver is within normal limits in size. There is a millimetric hypodensity at the dome of the liver on image number [id number], too small to characterize. No suspicious mass. GALLBLADDER: No stones identified. No wall thickening or inflammatory changes. BILE DUCTS: No intrahepatic or extrahepatic ductal dilatation. SPLEEN: Normal size. No focal lesions. PANCREAS: No peripancreatic inflammatory process or fluid collection.No appreciable mass or ductal dilatation. ADRENALS: Unremarkable. KIDNEYS/URINARY TRACT: There is contrast material within the collecting systems limiting assessment for stones. There is no hydronephrosis. No suspicious cystic or solid mass in either kidney. No hydronephrosis or hydroureter. The urinary bladder is decompressed, which accentuates wall thickness. GI: The stomach is unremarkable. Small bowel loops are normal incaliber. No wall thickening or obstruction. The appendix is normal. There is diverticulosis, without diverticulitis. Intermittent decompression of the sigmoid colon and rectum limits evaluation. PERITONEUM: There is no free intraperitoneal air. There is no freefluid. No mesenteric lymphadenopathy. RETROPERITONEUM: No retroperitoneal mass or adenopathy. REPRODUCTIVE: The prostate gland is unremarkable. VASCULATURE ABDOMEN: No abdominal aortic aneurysm. MUSCULOSKELETAL ABDOMEN PELVIS: There is degenerative disc diseasegreatest at L5-S1. No acute osseous abnormality. Mild osteoarthritis of the SI joints. OTHER: Small fat containing umbilical hernia. IMPRESSION: 1. No focal inflammatory process within the chest, abdomen or pelvis. 2. No lymphadenopathy. 3. Small fat containing umbilical hernia. 4. Diverticulosis. 5. Additional findings as above. THIS IS AN ELECTRONICALLY VERIFIED FINAL REPORT 03/25/2025 7:27 AM - Electronically signed by Oliva Turner M.D. TW: TW Report ID: [id number] Reading Location: [id number] Vivian Cunningham NP IMG CT PROCEDURES Final Resul t from Last 3 Months Insurance [facility] [employer] [employer] Address: [address] [place] [address] FORMERLY [facility] [employer] [employer] Address: [facility] [address] [place] [address] [employer] CHOICE Advance Directives For more information, please contact: [phone] * Full Code (Latest Code Status on File) Date Activated Date Inactivated Comments 08/29/2023 2:41 PM 08/29/2023 9:09 PM * Full Code Date Activated Date Inactivated Comments 09/23/2021 3:05 PM 09/28/2021 9:54 PM * Full Code Date Activated Date Inactivated Comments 09/15/2021 10:06 AM 09/16/2021 5:15 PM * Full Code Date Activated Date Inactivated Comments 03/28/2021 11:11 AM 03/30/2021 11:31 AM * Full Code Date Activated Date Inactivated Comments 09/17/2020 10:22 AM 09/17/2020 4:26 PM Care Teams [employer] Chief Relationship Specialty Start Date End Date Octavio Stout MD [address] [place] [address] PCP - General 06/17/15 Mikayla Bauer, PT Physical Therapist Physical Therapy 12/18/17 Pati Lin, PT Physical Therapist Physical Therapy 01/03/18 Conrado Deutsch MD Surgeon Cardiothoracic Surgery 09/28/21 Moises Quiros MD Consulting Physician Cardiology 09/28/21
[2025-04-22 14:34] VITALS: BP 132/83; PULSE 85; RESP 16; TEMP 36.6; O2SAT 99
--- NOTE | 2025-04-22 14:34 | ED_ITS ---
HPI - Wound/Laceration General Chief Complaint: Wound/Laceration Stated Complaint: Right Hand Injury Time Seen by Provider: 04/22/25 14:34 Source: patient Mode of arrival: ambulatory Limitations: no limitations History of Present Illness HPI narrative: 34 yo M presents with puncture wound to R hand. Injury happened yesterday. [facility] started to tip. Grabbed boards and punctured into R hand. Soreness worse today. ROM and distal NV intact. Denies numbness. Concerned for infection and tetanus. All systems reviewed and negative except as noted above. Related Data Home Medications ?Medication ?Instructions ?Recorded ?Confirmed ?Last Taken ?Type alprazolam 0.25 mg tablet mg 04/22/25 Unknown History clopidogrel 75 mg tablet mg 04/22/25 Unknown History gabapentin 800 mg tablet mg 04/22/25 Unknown History isosorbide mononitrate 30 mg mg PO 04/22/25 Unknown H istory tablet,extended release 24 hr metoprolol succinate 50 mg mg PO 04/22/25 Unknown His tory tablet,extended release 24 hr pantoprazole 40 mg tablet,delayed mg PO 04/22/25 Unkn own History release Allergies Allergy/AdvReac Type Severity Reaction Status Date / Time No Known Allergies Allergy Verified 04/22/25 14:27 [facility] Comments At time of signature, agree with nursing past medical, surgical, social and family history. There is no relevant family history pertinent to the presenting complaint. Exam Narrative: GENERAL: This is a well-nourished, well-developed patient, in no apparent distress. HEAD: normocephalic, atraumatic. EYES: PERRL. Sclera clear/white. Vision is grossly intact. EARS: External ears normal NOSE: External nose normal NECK: Neck supple, non-tender without lymphadenopathy, masses or thyromegaly. CARDIOVASCULAR: Regular rate and rhythm without murmurs, gallops, or rubs. RESPIRATORY: Clear to auscultation. Breath sounds equal bilaterally. No wheezes, rales, or rhonchi. SKIN: warm, Dry, intact with no suspicious lesions or rash, good texture and turgor. NEURO: awake, alert, and oriented to person, place and time. There were no obvious focal neurologic abnormalities. EXTREMITIES: Puncture wound to the thenar eminence of the right hand with some mild surrounding swelling, tender on palpation. No drainage. Normal range of motion to right hand. Normal flexion and extension to all fingers. No weakness noted. 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 Course Course Level of Care: Express Care Visit Vital Signs Vital signs: Vital Signs Temperature 36.6 C 04/22/25 14:34 Pulse Rate 85 04/22/25 14:34 Respiratory Rate 16 04/22/25 14:34 Blood Pressure 132/83 04/22/25 14:34 Pulse Oximetry 99 04/22/25 14:34 Oxygen Delivery Room Air 04/22/25 14:34 Temperature 36.6 C 04/22/25 14:34 Pulse Rate 85 04/22/25 14:34 Respiratory Rate 16 04/22/25 14:34 Blood Pressure 132/83 04/22/25 14:34 Pulse Oximetry 99 04/22/25 14:34 Oxygen Delivery Room Air 04/22/25 14:34 Reviewed MDM - Wound/Laceration MDM Narrative Medical decision making narrative: patient's tetanus updated today. Prescribed antibiotic for wound infection prevention. CMS intact right hand. Discharge Plan Discharge Clinical Impression: Puncture wound of hand, right Qualifiers: Encounter type: initial encounter Foreign body presence: without foreign body Qualified Code(s): S61.431A - Puncture wound without foreign body of right hand, initial encounter Patient Disposition: Home Condition: Stable Instructions: Antibiotic Form, Puncture Wound (ED) Additional Instructions: Your tetanus was updated today. Keep wound clean and dry. Take antibiotic as prescribed to prevent wound infection. Follow-up with your primary care physician as needed. Patient Language: [place] Prescriptions: New cephalexin 500 mg capsule 500 mg PO Q8H 7 Days Qty: 21 0RF No Action metoprolol succinate 50 mg tablet extended release 24 hr PO isosorbide mononitrate 30 mg tablet extended release 24 hr PO clopidogrel 75 mg tablet alprazolam 0.25 mg tablet gabapentin 800 mg tablet pantoprazole 40 mg tablet,delayed release (DR/EC) PO Follow-up/Referrals: Harms,Octavio Roblero M.D. [Primary Care Provider] Time of Disposition: 14:46
[2025-04-22] MEDS: TETANUS,DIPHTHERIA,AC PERTUSSIS ADULT (0.5 ML) BOOSTRIX IM (14:53)
== END 2025-04-22 14:59 | disposition home or self-care (01) ==
PROVIDERS: Emergency Provider Nurse Practitioner Family; PCP Family Medicine
DX: S61.431A Puncture wound without foreign body of right hand, initial encounter (principal); W45.8XXA Other foreign body or object entering through skin, initial encounter; Z23 Encounter for immunization
CPT/HCPCS: 90471; 90715; 99213; G0463